=== PATIENT | male | born 1975 | race Two or more races ===

== ENCOUNTER 2016-12-04 11:26 | Emergency (ER) | payer MEDICAID ==
[~2016-12-04] VITALS: Ht 182.9 cm; Wt 91.0 kg
[2016-12-04] MEDS ORDERED: KETOROLAC 30MG/ML VIAL IM ONE (13:00)
[2016-12-04 15:35] VITALS: BP 156/84
== END 2016-12-04 15:36 | disposition home or self-care (01) ==
LOC: ER 12:00
DX: M54.2 Cervicalgia (principal); M54.89 Other dorsalgia; M25.519 Pain in unspecified shoulder; V43.52XA Car driver injured in collision with other type car in traffic accident, initial encounter; Y93.89 Activity, other specified; Y92.488 Other paved roadways as the place of occurrence of the external cause
CPT/HCPCS: 96372; 99283; J1885